=== PATIENT | female | born 1990 | race American Indian/Alaskan Native ===

== ENCOUNTER 2017-06-10 03:08 | Emergency (ER) | payer OTHER ==
[2017-06-10 03:51] VITALS: BP 124/73
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
[2017-06-10] MEDS ORDERED: NORCO 5/325 PO ONE (06:23)
[2017-06-10] MEDS ORDERED: FLEXERIL PO ONE (06:24)
== END 2017-06-10 07:22 | disposition home or self-care (01) ==
LOC: ED 03:08
DX: S39.012A Strain of muscle, fascia and tendon of lower back, initial encounter (principal); M54.5 Low back pain; J45.909 Unspecified asthma, uncomplicated; F17.200 Nicotine dependence, unspecified, uncomplicated; V49.40XA Driver injured in collision with unspecified motor vehicles in traffic accident, initial encounter; Y93.9 Activity, unspecified; Y99.9 Unspecified external cause status; Y92.410 Unspecified street and highway as the place of occurrence of the external cause
CPT/HCPCS: 99282